=== PATIENT | male | born 1935 | race Caucasian/White ===

== ENCOUNTER 2018-12-15 11:09 | Day surgery (SDC) | payer MEDICARE, OTHER ==
[2018-12-15] MEDS ORDERED: PROPOFOL 10 MG/ML VIAL IV ONE (11:10)
[2018-12-15] MEDS ORDERED: LIDOCAINE 2% MDV (20MG/ML) 20ML VIAL IV ONE (11:10)
[2018-12-15] MEDS ORDERED: 0.9 % SODIUM CHLORIDE 1000ML 1,000 ML IV ONE ×2 (12:00→13:15)
[2018-12-15 12:03] LABS: ABSOLUTE NEUTROPHIL COUNT 4.44; BASO % 0.7 % (0-6); GRAN % 50.3 % (47-80); HEMATOCRIT 41.1 % (42.0-52.0); HEMOGLOBIN 13.6 gm/dl (14.0-18.0); LYMPH % 40.8 % (16-45); MEAN CELL VOLUME 97.2 fl (81-97); MEAN CORPUSCULAR HGB CONC 33.1 g/dl (32-36); MEAN PLATELET VOLUME 9.8 fl (7.4-10.4); MONO % 6.2 % (0-9); PLATELET COUNT 159 K/uL (130-400); RED BLOOD COUNT 4.23 M/uL (4.40-5.70); RED CELL DISTRIBUTION WIDTH 14.4 % (11.5-14.5); WHITE BLOOD COUNT W/O DIFF 8.8 K/uL (4.2-12.2)
[2018-12-15 12:04] LABS: MEAN CORPUSCULAR HEMOGLOBIN 32.1 pg (27-33)
[2018-12-15 12:14] LABS: INR 3.3; PROTHROMBIN TIME (PATIENT) 31.8 SECONDS (9.5-12.1)
[2018-12-15 12:22] LABS: ALB/GLOB RATIO 1.1 (1.1-1.8); ALBUMIN 3.9 g/dL (4.0-5.0); ALKALINE PHOSPHATASE 45 U/L (40-129); ALT/SGPT 17 U/L (<41); AST/SGOT 19 U/L (10.0-50.0); BLOOD UREA NITROGEN 20 mg/dL (8-23); CREATININE 1.1 mg/dL (0.7-1.2); EST GLOMERULAR FILTRATION RATE > 60 mL/min; GLUCOSE,RANDOM 138 mg/dL (74-109); TOTAL PROTEIN 7.6 g/dL (6.6-8.7)
--- NOTE | 2018-12-21 08:00 | Operative Note ---
DATE OF SURGERY: 12/15/2018 The patient is 83 years old with nonischemic cardiomyopathy, persistent atrial fibrillation, diabetes mellitus, hypertension, and hyperlipidemia who is undergoing elective cardioversion. After informed consent, the patient was sedated by Anesthesia at the bedside. Defibrillator pads were placed on the anterior and posterior positions. Then 200 joules of biphasic countershock x1 was applied with successful cardioversion of the AFib to sinus rhythm. He will be discharged with amiodarone 200 mg daily and continuation of carvedilol 6.25 mg b.i.d. His ejection fraction is approximately 25% to 30% at this time. FINAL IMPRESSION: 1. Successful cardioversion of AFib to sinus rhythm. 2. Continue amiodarone, carvedilol, lisinopril, spironolactone, and warfarin as written. MTDD
== END 2018-12-15 13:32 | disposition home or self-care (01) ==
LOC: SUR 11:09
PROVIDERS: ATTEND Internal Medicine Cardiovascular Disease
DX: I48.1 Persistent atrial fibrillation (principal); Z79.01 Long term (current) use of anticoagulants; I42.0 Dilated cardiomyopathy; E11.9 Type 2 diabetes mellitus without complications; I10 Essential (primary) hypertension; E78.5 Hyperlipidemia, unspecified; M10.9 Gout, unspecified; Z98.61 Coronary angioplasty status; Z86.73 Personal history of transient ischemic attack (TIA), and cerebral infarction without residual deficits; Z86.711 Personal history of pulmonary embolism; G47.33 Obstructive sleep apnea (adult) (pediatric); R60.9 Edema, unspecified
CPT/HCPCS: 80053; 85025; 85610; 93005; J7030